=== PATIENT | male | born 1965 | race Caucasian/White ===

== ENCOUNTER 2023-02-27 09:31 | Emergency (ER) | payer BC ==
[~2023-02-27] VITALS: Ht 188 cm; Wt 100.6 kg
[2023-02-27] MEDS ORDERED: MORPHINE 4 MG/ML 1ML VIAL IV ONE (10:40)
[2023-02-27] MEDS ORDERED: BOOSTRIX VACCINE (TETANUS/DIPHTH/ACEL. PERTUSSIS) 0.5ML SYR IM.IMMUN ONE (10:40)
[2023-02-27] MEDS ORDERED: ceFAZolin SOD 2 GM in IV 1 EA IV ONE (10:40)
[2023-02-27] MEDS ORDERED: ONDANSETRON 4MG 2ML VIAL IV ONE (10:40)
[2023-02-27 11:06] LABS: BASO # 0.1 10^3/uL (0.0-0.2); BASO % 0.9 % (0.0-1.0); EOS # 0.1 10^3/uL (0.0-0.5); EOS % 1.9 % (0.0-3.0); HEMOGLOBIN 14.6 g/dl (13.5-17.5); LYMPH # 1.2 10^3/uL (1.5-5.0); LYMPH % 21.8 % (24.0-44.0); MEAN CORPUSCULAR HEMOGLOBIN 31.3 pg (27.0-33.0); MEAN CORPUSCULAR HGB CONC 33.2 g/dl (32.0-36.5); MEAN CORPUSCULAR VOLUME 94.2 fl (80.0-96.0); MONO # 0.6 10^3/uL (0.0-0.8); MONO % 10.9 % (2.0-8.0); NEUTROPHILS # 3.4 10^3/uL (1.5-8.5); NEUTROPHILS % 64.1 % (36.0-66.0); PLATELET COUNT, AUTOMATED 283 10^3/uL (150-450); RED BLOOD COUNT 4.67 10^6/uL (4.30-6.10); WHITE BLOOD COUNT 5.3 10^3/uL (4.0-10.0)
[2023-02-27 11:46] LABS: BLOOD UREA NITROGEN 16 MG/DL (9-23); CALCIUM LEVEL 9.4 MG/DL (8.5-10.1); CARBON DIOXIDE LEVEL 28 MMOL/L (20-31); CHLORIDE LEVEL 107 MMOL/L (98-107); CREATININE FOR GFR 1.09 MG/DL (0.70-1.30); GLOMERULAR FILTRATION RATE > 60.0 (>56); GLUCOSE, FASTING 117 MG/DL (60-100); POTASSIUM SERUM 4.3 MMOL/L (3.5-5.1); SODIUM LEVEL 142 MMOL/L (136-145)
[2023-02-27] MEDS ORDERED: KETOROLAC 30 MG/ML 1ML VIAL IV ONE (13:00)
[2023-02-27] MEDS ORDERED: LIDOCAINE 1% MDV 20ML VIAL SC ONE (15:15)
[2023-02-27] MEDS ORDERED: HYDR-3713 PO (16:29)
[2023-02-27] MEDS ORDERED: CEPH500C PO (16:29)
[2023-02-27 16:42] VITALS: BP 106/78; TEMP 98.2; O2SAT 98
== END 2023-02-27 16:54 | disposition home or self-care (01) ==
LOC: M ED 09:31
DX: S66.222A Laceration of extensor muscle, fascia and tendon of left thumb at wrist and hand level, initial encounter (principal); W31.2XXA Contact with powered woodworking and forming machines, initial encounter; Y92.009 Unspecified place in unspecified non-institutional (private) residence as the place of occurrence of the external cause; Y93.H3 Activity, building and construction; Y99.8 Other external cause status
CPT/HCPCS: 12002; 73130; 80048; 85025; 86850; 86900; 86901; 90715; 96365; 96375; 99284; J0690; J1885; J2405

== ENCOUNTER 2023-03-03 07:02 | Day surgery (SDC) | payer BC ==
[~2023-03-03] VITALS: Ht 188 cm; Wt 100.7 kg
[~2023-03-03 07:02] MED LIST: CEPH500C PO; HYDR-3713 PO
[2023-03-03] MEDS ORDERED: fentaNYL 100 MCG/2 ML INJECTION As Ordered ONE (08:09)
[2023-03-03] MEDS ORDERED: MIDAZOLAM INJ 2MG/2ML VIAL As Ordered ONE (08:10)
[2023-03-03] MEDS ORDERED: LIDOCAINE 2% 100MG/5ML SDV (FOR ANES.) As Ordered ONE (08:10)
[2023-03-03] MEDS ORDERED: propofoL 200 MG/20 ML VIAL As Ordered ONE (08:10)
[2023-03-03] MEDS ORDERED: KETOROLAC 60MG 2ML VIAL As Ordered ONE (08:10)
[2023-03-03] MEDS ORDERED: ONDANSETRON 4MG 2ML VIAL As Ordered ONE (08:10)
[2023-03-03] MEDS ORDERED: BACITRACIN OINTMENT 30GM TUBE As Ordered ONE (08:24)
[2023-03-03] MEDS ORDERED: LR 1,000 ML IV SCH ×2 (08:25→09:50)
[2023-03-03] MEDS ORDERED: ceFAZolin SOD 2 GM in IV 1 EA IV ONE (08:25)
[2023-03-03] MEDS ORDERED: ACETAMINOPHEN 1000MG 100ML IV BAG As Ordered ONE (08:54)
[2023-03-03] MEDS ORDERED: HYDROmorphone HCL 2MG/ML 1ML VIAL As Ordered ONE (08:58)
[2023-03-03] MEDS ORDERED: fentaNYL 100 MCG/2 ML INJECTION IV PRN (09:50)
[2023-03-03] MEDS ORDERED: ONDANSETRON 4MG 2ML VIAL IV PRN (09:50)
[2023-03-03] MEDS ORDERED: oxyCODONE 5MG TAB PO PRN (09:50)
[2023-03-03 11:08] VITALS: BP 133/75; TEMP 97.4; O2SAT 98
== END 2023-03-03 11:12 | disposition home or self-care (01) ==
LOC: M SDC 07:02
PROVIDERS: ATTEND Orthopaedic Surgery Hand Surgery
DX: S61.012A Laceration without foreign body of left thumb without damage to nail, initial encounter (principal); S62.502B Fracture of unspecified phalanx of left thumb, initial encounter for open fracture; W31.2XXA Contact with powered woodworking and forming machines, initial encounter; Y92.89 Other specified places as the place of occurrence of the external cause; Y93.9 Activity, unspecified; Y99.9 Unspecified external cause status; F17.200 Nicotine dependence, unspecified, uncomplicated
CPT/HCPCS: 11012; 26418; 76000; J0131; J0665; J0690; J1100; J1170; J1885; J2250; J2405; J3010

== ENCOUNTER → 2023-03-12 | Outpatient (CLI) | payer BC | LOC: M SOG 10:24 | PROVIDERS: ATTEND Physician Assistant | DX: S61.012D Laceration without foreign body of left thumb without damage to nail, subsequent encounter (principal) ==

== ENCOUNTER → 2023-04-05 | Outpatient (CLI) | payer BC | LOC: M SOG 08:09 | PROVIDERS: ATTEND Physician Assistant | DX: S66.222D Laceration of extensor muscle, fascia and tendon of left thumb at wrist and hand level, subsequent encounter (principal); Z53.9 Procedure and treatment not carried out, unspecified reason ==